=== PATIENT | male | born 1990 | race Caucasian/White ===

== ENCOUNTER 2020-08-29 20:17 | Emergency (ER) | payer BC ==
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
== END 2020-08-29 21:10 | disposition home or self-care (01) ==
LOC: MW.ED 20:17
DX: S01.81XA Laceration without foreign body of other part of head, initial encounter (principal); W20.8XXA Other cause of strike by thrown, projected or falling object, initial encounter
CPT/HCPCS: 99282